=== PATIENT | male | born 1980 | race Caucasian/White ===

== ENCOUNTER 2016-06-21 12:33 | Emergency (ER) | payer OTHER ==
[~2016-06-21] VITALS: Ht 180.3 cm; Wt 98.9 kg
[2016-06-21] MEDS ORDERED: TRUVTAB3 PO (13:25)
[2016-06-21] MEDS ORDERED: RALT40TA PO (13:25)
[2016-06-21] MEDS ORDERED: EXPOSURE KIT-ADULT 7 DAY SUPPLY PO ONE (13:30)
[2016-06-21 13:38] LABS: BASO # 0.1 K/mm3 (0.0-0.2); BASO % 0.8 % (0.0-1.0); EOS # 0.4 K/mm3 (0.0-0.50); EOS % 4.1 % (0.0-3.0); LARGE UNSTAINED CELL # 0.3 K/mm3 (0.0-0.4); LARGE UNSTAINED CELL % 2.5 % (0.0-4.0); MEAN CORPUSCULAR HEMOGLOBIN 31.1 pg (27.0-33.0); MEAN CORPUSCULAR HGB CONC 34.3 g/dl (32.0-36.5); MEAN CORPUSCULAR VOLUME 90.8 fl (80.0-96.0); MONO # 0.6 K/mm3 (0.0-0.8); MONO % 5.8 % (0.0-5.0); NEUTROPHILS # 6.1 K/mm3 (1.8-7.7); NEUTROPHILS % 59.9 % (36.0-66.0); PLATELET COUNT, AUTOMATED 314 k/mm3 (150-450); WHITE BLOOD COUNT 10.2 K/mm3 (4.0-10.0)
[2016-06-21 14:03] LABS: ALBUMIN 4.3 GM/DL (3.2-5.2); ALBUMIN/GLOBULIN RATIO 1.16 (1.00-1.93); ALKALINE PHOSPHATASE 148 U/L (45-117); ALT/SGPT 30 U/L (12-78); ANION GAP 8 MEQ/L (8-16); AST/SGOT 18 U/L (15-37); BILIRUBIN,TOTAL 0.5 MG/DL (0.2-1.0); BLOOD UREA NITROGEN 13 MG/DL (7-18); CALCIUM LEVEL 8.8 MG/DL (8.5-10.1); CARBON DIOXIDE LEVEL 27 MEQ/L (21-32); CHLORIDE LEVEL 107 MEQ/L (98-107); CREATININE FOR GFR 0.81 MG/DL (0.70-1.30); GLOMERULAR FILTRATION RATE > 60.0 (>60); GLUCOSE, FASTING 100 MG/DL (70-105); SODIUM LEVEL 142 MEQ/L (136-145)
[2016-06-21 14:43] VITALS: BP 128/71
[2016-06-22 11:45] LABS: HEPATITIS B SURFACE ANTIBODY POSITIVE (POSITIVE)
== END 2016-06-21 14:45 | disposition home or self-care (01) ==
LOC: M ED 13:13
DX: Z77.21 Contact with and (suspected) exposure to potentially hazardous body fluids (principal); W46.0XXA Contact with hypodermic needle, initial encounter; Y92.89 Other specified places as the place of occurrence of the external cause; Y93.89 Activity, other specified; Y99.0 Civilian activity done for income or pay